=== PATIENT | male | born 2000 | race Two or more races ===

== ENCOUNTER 2025-03-25 05:13 | Emergency (ER) | payer OTHER ==
[~2025-03-25] VITALS: Ht 172.7 cm; Wt 83.9 kg
[2025-03-25 06:03] VITALS: BP 134/70; TEMP 98.4; O2SAT 97
== END 2025-03-25 06:23 ==
LOC: ER 05:16
DX: F15.10 Other stimulant abuse, uncomplicated (principal); F19.10 Other psychoactive substance abuse, uncomplicated; Z60.2 Problems related to living alone; Z65.3 Problems related to other legal circumstances